=== PATIENT | female | born 2000 | race Caucasian/White ===

== ENCOUNTER 2021-09-03 17:37 | Emergency (ER) | payer OTHER | END 2021-09-03 18:04 | disposition home or self-care (01) | LOC: BURERS 17:37 | DX: J01.90 Acute sinusitis, unspecified (principal) | CPT/HCPCS: 99283 ==

== ENCOUNTER 2021-12-20 20:28 | Emergency (ER) | payer OTHER | END 2021-12-20 21:45 | disposition home or self-care (01) | LOC: BURERS 20:28 | DX: S93.602A Unspecified sprain of left foot, initial encounter (principal); X58.XXXA Exposure to other specified factors, initial encounter ==

== ENCOUNTER 2024-02-22 14:22 | Emergency (ER) | payer OTHER, SELFPAY ==
[2024-02-22] MEDS ORDERED: Acetaminophen 500 MG TAB ONE (15:08)
== END 2024-02-22 15:13 | disposition home or self-care (01) ==
LOC: BURERS 14:22
DX: S00.03XA Contusion of scalp, initial encounter (principal); F17.210 Nicotine dependence, cigarettes, uncomplicated; Y04.2XXA Assault by strike against or bumped into by another person, initial encounter
CPT/HCPCS: 99283